=== PATIENT | male | born 1960 | race Caucasian/White ===

== ENCOUNTER 2021-11-26 07:39 | Outpatient (REF) | payer OTHER, SELFPAY ==
[2021-11-26 08:03] LABS: MANUAL DIFF FLAG NO
[2021-11-26 08:28] LABS: Basophils Percent Auto 0.5 % (0-2); Eosinophils Absolute Auto 0.1 X10*3/uL (0.0-0.4); Hematocrit 45.7 % (42.0-52.0); Imm Gran Abs Auto 0.02 X10*3/uL (0.00-0.03); Imm Gran Pct Auto 0.3 % (0.0-0.4); Lymphocytes Absolute Auto 1.4 X10*3/uL (1.2-4.9); Lymphocytes Percent Auto 23.5 % (20-40); Mean Corpuscular HGB Conc 32.8 g/dl (31.0-36.0); Mean Corpuscular Hemoglobin 29.5 pg (27.0-33.0); Mean Platelet Volume 10.4 fL (9.4-12.4); Monocytes Absolute Auto 0.5 X10*3/uL (0.1-1.2); Monocytes Percent Auto 8.5 % (2-11); Neutrophils Absolute Auto 3.8 x10*3/uL (2.0-8.3); Neutrophils Percent Auto 66.2 % (45-73); Platelet Count 255 X10*3/uL (160-400); Red Blood Count 5.08 X10*6/uL (4.60-5.80); Red Cell Distribution Width 12.7 % (11.0-16.0); White Blood Count 5.8 X10*3/uL (4.8-10.8)
[2021-11-26 08:47] LABS: Appearance Urine CLEAR; Color Urine YELLOW; Glucose Urine UA NEG (NEG); Leukocyte Esterase Urine NEG (NEG); Nitrite Urine NEG (NEG); Specific Gravity - Urine >= 1.030 (1.005-1.025); Urine Blood NEG (NEG); Urine Ketones NEG (NEG); Urine Protein NEG (NEG-TRACE)
[2021-11-26 09:31] LABS: Alanine Aminotransferase 10 U/L (0-40); Albumin Level 4.2 g/dL (3.5-5.0); Alkaline Phosphatase 45 U/L (39-117); Anion Gap 9 (12-20); Aspartate Amino Transferase 17 U/L (5-37); Bilirubin Total 1.3 mg/dL (0.0-1.0); Blood Urea Nitrogen 16 mg/dL (9-16); Calcium 9.4 mg/dL (8.4-10.2); Carbon Dioxide 29 mmol/L (22-29); Chloride 104 mmol/L (96-108); Cholesterol 204 mg/dL; Estimated Glomerular Filt Rate 58; Glucose Fasting 95 mg/dL (60-99); HDL Cholesterol 54 mg/dL; LDL Cholesterol Calculated 137 mg/dl; Potassium 4.4 mmol/L (3.3-5.1); Sodium 138 mmol/L (135-145); Total Protein 6.6 g/dL (6.5-8.0); Triglycerides 66 mg/dL
[2021-11-26 09:33] LABS: TSH reflex Free T4 1.26 uIU/mL (0.32-4.0); Vitamin D 25-OH Total 11.8 ng/mL (>30)
== END 2021-11-26 07:40 | disposition home or self-care (01) ==
LOC: HO.LAB 07:39
PROVIDERS: PCP Internal Medicine; Visit Provider Internal Medicine
DX: Z00.00 Encounter for general adult medical examination without abnormal findings (principal)
CPT/HCPCS: 36415; 80053; 80061; 81003; 82306; 84153; 84443; 85025

== ENCOUNTER 2023-06-23 07:48 | Outpatient (AMB) | payer MEDICARE, SELFPAY ==
--- NOTE | 2023-06-23 07:55 | AM.OFFVISNUR ---
Intake Intake Visit Reasons: possible strep Allergies iodine Allergy (Unknown, Verified 11/01/21 17:04) Rash Do you need a note to return to daycare/school/sports/work: No Results AMB Rapid Strep AMB Rapid Strep Negative Last Edit by ARINA Ojeda on 06/23/23 07:58 Coding Assessment & Plan Assessment & Plan Plan strep test negative
--- NOTE | 2023-06-23 08:05 | AM.OFFVISNUR ---
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 Information Interpreted: clinical only Homemaking Rehabilitation Consultant: Homemaking Rehabilitation Consultant offered & declined Accompanied by: Self / Same As Patient Allergies iodine Allergy (Unknown, Verified 06/23/23 08:05) Rash Do you need a note to return to daycare/school/sports/work: No Results AMB Rapid Strep AMB Rapid Strep Cancelled Last Edit by Brittani Navarro CMA on 06/23/23 08:07 AMB Rapid Strep previously reported as Negative Brittani Navarro 06/23/23 08:07 CANCELLED Note is not closing AMB Rapid Strep AMB Rapid Strep Negative Last Edit by Brittani Navarro CMA on 06/23/23 08:08 Coding Level of Care Code Established Pt Est Pt Level 1 (85685) Patient Type Established History Problem Focused Exam Problem Focused Medical Decision Making Straight Forward Diagnoses Sore throat J02.9 Time Spent (min) 5 Assessment & Plan Assessment & Plan (1) Sore throat: Code(s): J02.9 - Acute pharyngitis, unspecified Plan: Swab came back negative Plan Patient came in with sore throat, swab was done and came back negative. Orders: Orders AMB Rapid Strep Screen Today B97.89 - Other viral agents as the cause of diseases classified elsewhere, J02.8 - Acute pharyngitis due to other specified organisms
== END 2023-06-23 07:50 | disposition home or self-care (01) ==
LOC: HO.HMGH 07:48
PROVIDERS: PCP Internal Medicine; Visit Provider Internal Medicine
DX: J02.8 Acute pharyngitis due to other specified organisms (principal); B97.89 Other viral agents as the cause of diseases classified elsewhere; J02.9 Acute pharyngitis, unspecified
CPT/HCPCS: 87880

== ENCOUNTER 2023-09-21 10:19 | Outpatient (REF) | payer MEDICARE, SELFPAY ==
--- NOTE | ~2023-09-21 | XR_ITS ---
EXAMINATION: XR ANKLE, RIGHT CLINICAL INFORMATION: Ankles and joints of right foot Ski accident COMPARISON: None available. TECHNIQUE: AP, lateral, and mortise views of the right ankle. FINDINGS: There is mild soft tissue swelling over the lateral malleolus. There is a comminuted oblique fracture of the distal fibular shaft without significant displacement. Small ossific or calcific density posterior to the talus on the lateral view is of unknown chronicity. Small calcific density seen at the insertion of the Achilles tendon. Joint spaces are maintained. XR/XR ankle RT min 3V IMPRESSION: 1. Comminuted oblique fracture of the distal fibular shaft without significant displacement. 2. Small ossific or calcific density posterior to the talus on the lateral view is of unknown chronicity.
== END 2023-09-21 10:20 | disposition home or self-care (01) ==
LOC: HO.XRAY 10:19
PROVIDERS: PCP Internal Medicine; Visit Provider Internal Medicine
DX: M25.571 Pain in right ankle and joints of right foot (principal)
CPT/HCPCS: 73610

== ENCOUNTER 2023-09-25 10:11 | Outpatient (AMB) | payer MEDICARE, SELFPAY ==
--- NOTE | 2023-09-25 10:13 | A.OFFVIS_ITS ---
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 DOI 09/20/23. Patient reports that he his some ice and took a fall. He reports that he was placed in a boot right away. He is not having any numbness or tingling. He is having minimal pain. Allergies iodine Allergy (Unknown, Verified 06/23/23 08:05) Rash HPI INTERNATIONAL LOGISTICS COORDINATOR, R foot fx DOI 09/19/[address] Baker is a 63 year old M who presents for a right ankle fracture, S/P fall, DOI: 09/19/23. He was snowboarding and had a significant injury to his right ankle but the precise mechanism is unclear. He has been wearing a boot and has minimal pain. He states there has been mild swelling. [facility] Medical History (Updated 09/21/23 @ 10:52 by Mauricio Mejia MD) No pertinent past medical history Surgical History (Updated 11/01/21 @ 17:22 by Mauricio Mejia MD) History of colonoscopy (~02/28/13) S/P excision of lipoma (~03/05/16) History of tonsillectomy Family History Father Heart disease Father Heart disease Social History Housing: House Alcohol intake: never Patient Tobacco Use Status: Never used Tobacco Second Hand Smoke Exposure: No service: No Current occupational status: employed Cognitive needs: No Hearing needs: No Vision needs: Yes Review of Systems Const All systems reviewed & are unremarkable except as noted in HPI and below Physical Exam Const General: no acute distress, alert and awake HEENT Head: Yes normocephalic and Yes atraumatic Resp Effort & Inspection: normal respiratory effort and able to speak in complete sentences Cardio Jugular venous distension: no JVD Extrem Other: Right ankle with mild swelling over the distal fibula. there is TTP over the deltoid ligament medially. Psych Appearance: grossly normal Affect: normal affect Attitude: cooperative Results Reviewed Results Reviewed: I personally reviewed relevant radiographs. There is a minimallydisplaced Hay B distal fibula fracture nad a quaestion of posterior talar avulsion/chip fracture? Assessment & Plan Assessment & Plan (1) Closed right ankle fracture: Code(s): S82.891A - Other fracture of right lower leg, initial encounter for closed fracture Plan: Right ankle fracture with posterior calcaneal ossific body that may represent a talar avulsion and medial tenderness over the deltoid. MRI ordered to assess deltoid ligament. Boot . F/u in 2 weeks for radiographs. Will contact when MRI resulted. Plan Prepared for Nick Ann MD by Maxime Wright, ophthalmic medical assistant, on 09/25/23 at 10:17 AM, EST. Orders: Orders MR ankle RT wo con Today S82.891A - Other fracture of right lower leg, initial encounter for closed fracture Coding Level of Care Code New Pt Level 3 (40231) Diagnoses Closed right ankle fracture S82.891A
== END 2023-09-25 10:39 | disposition home or self-care (01) ==
PROVIDERS: PCP Internal Medicine; Visit Provider Orthopaedic Surgery
DX: S82.891A Other fracture of right lower leg, initial encounter for closed fracture (principal); M89.8X7 Other specified disorders of bone, ankle and foot
CPT/HCPCS: 99203

== ENCOUNTER → 2023-09-25 10:11 | Outpatient (BNVA) | payer MEDICARE, SELFPAY | PROVIDERS: PCP Internal Medicine; Visit Provider Orthopaedic Surgery | DX: S82.891A Other fracture of right lower leg, initial encounter for closed fracture (principal) | CPT/HCPCS: 99202 ==

== ENCOUNTER 2023-10-12 07:37 | Outpatient (REF) | payer MEDICARE, SELFPAY ==
--- NOTE | ~2023-10-12 | XR_ITS ---
EXAMINATION: XR ANKLE, RIGHT CLINICAL INFORMATION: Nonspecific ankle and joints of foot. COMPARISON: Radiographs of the right ankle of 09/21/2023 . TECHNIQUE: 3 views of the right ankle. FINDINGS: Decreased ankle joint effusion and soft tissue swelling. Redemonstration of a comminuted oblique fracture of the distal shaft of the fibula with minimal displacement. Fracture line is still visible, but less conspicuous, characteristic of some interval bridging callus formation. The previously identified small ossific or calcific density posterior to the talus on the lateral view is less conspicuous and is of undetermined age and etiology. XR/XR ankle RT min 3V IMPRESSION: Healing oblique fracture of the distal fibular shaft.
== END 2023-10-12 07:38 | disposition home or self-care (01) ==
LOC: HO.HOSX 07:37
PROVIDERS: Visit Provider Orthopaedic Surgery
DX: M25.571 Pain in right ankle and joints of right foot (principal); S82.891A Other fracture of right lower leg, initial encounter for closed fracture; X58.XXXA Exposure to other specified factors, initial encounter; Y93.9 Activity, unspecified; Y92.9 Unspecified place or not applicable; Y99.9 Unspecified external cause status
CPT/HCPCS: 73610; 99212

== ENCOUNTER 2023-10-12 08:15 | Outpatient (AMB) | payer MEDICARE, SELFPAY ==
--- NOTE | 2023-10-12 08:18 | MHC.OFFVIS ---
Intake Intake Visit Reasons: O/V R foot fx DOI 09/19/23 MRI rev Intake Note: Uriel is a 63 year old male who presents today as a new patient with complaints of right foot pain DOI 09/20/23. At his last visit he was instructed to wear a boot and an MRI was ordered. Today he presents for review of the MRI Allergies iodine Allergy (Unknown, Verified 06/23/23 08:05) Rash HPI O/V R foot fx DOI 09/19/23 MRI rev HPI Details Uriel is doing well. No complaints. No medial sided pain. MRI deferred. [facility] Medical History (Updated 09/21/23 @ 10:52 by Mauricio Mejia MD) No pertinent past medical history Surgical History (Updated 11/01/21 @ 17:22 by Mauricio Mejia MD) History of colonoscopy (~02/28/13) S/P excision of lipoma (~03/05/16) History of tonsillectomy Family History Father Heart disease Father Heart disease Social History Housing: House Alcohol intake: never Patient Tobacco Use Status: Never used Tobacco Second Hand Smoke Exposure: No service: No Current occupational status: employed Cognitive needs: No Hearing needs: No Vision needs: Yes Physical Exam Extrem Other: No STS Very mild TTP laterally only Results Reviewed Results Reviewed: I personally reviewed relevant radiographs. Unchanged appearance of Hay B lateral malleolus fracture Assessment & Plan Assessment & Plan (1) Closed right ankle fracture: Code(s): S82.891A - Other fracture of right lower leg, initial encounter for closed fracture Plan: RIght lateral malleolus fracture May progress to WBAt in boot F/u 4 weeks with xray Orders: Orders XR ankle RT min 3V Today M25.579 - Pain in unspecified ankle and joints of unspecified foot Coding Level of Care Code Est Pt Level 3 (12856) Diagnoses Closed right ankle fracture S82.891A
== END 2023-10-12 10:43 | disposition home or self-care (01) ==
PROVIDERS: PCP Internal Medicine; Visit Provider Orthopaedic Surgery
DX: S82.891A Other fracture of right lower leg, initial encounter for closed fracture (principal)
CPT/HCPCS: 99213

== ENCOUNTER 2023-11-05 09:27 | Outpatient (REF) | payer MEDICARE, SELFPAY ==
--- NOTE | ~2023-11-05 | XR_ITS ---
EXAMINATION: XR ANKLE, LEFT CLINICAL INFORMATION: Ankle pain COMPARISON: Ankle radiographs 10/12/2023 TECHNIQUE: AP, lateral, and mortise views of the left ankle. FINDINGS: Redemonstration of an obliquely oriented fracture of the distal fibular diaphysis possibly minimally increased in degree of displacement with minimal bridging bony callus formation. Joint spaces are maintained. Soft tissues are unremarkable. Similar small tibiotalar joint effusion. XR/XR ankle LT min 3V IMPRESSION: 1. Redemonstration of an obliquely oriented fracture of the distal fibular diaphysis possibly minimally increased in degree of displacement with minimal bridging bony callus formation. 2. Similar small tibiotalar joint effusion. 3. No new acute osseous abnormality.
== END 2023-11-05 09:28 | disposition home or self-care (01) ==
LOC: HO.HOSX 09:27
PROVIDERS: Visit Provider Orthopaedic Surgery
DX: M25.572 Pain in left ankle and joints of left foot (principal); S82.891A Other fracture of right lower leg, initial encounter for closed fracture
CPT/HCPCS: 73610; 99212

== ENCOUNTER 2023-11-05 09:50 | Outpatient (AMB) | payer MEDICARE, SELFPAY ==
--- NOTE | 2023-11-05 09:51 | MHC.OFFVIS ---
Intake Intake Visit Reasons: OV -Lateral Malleolus fx DOI 09/19/23 Intake Note: Uriel is a 63 year old male who presents today for a follow up of his right lateral malleous DOI 09/20/23. At his last visit he was to begin WBAT in boot. Allergies iodine Allergy (Unknown, Verified 06/23/23 08:05) Rash HPI OV -Lateral Malleolus fx DOI 09/19/23 HPI Details Uriel is a 63 year old male who presents today for a follow up of his right lateral malleous DOI 09/20/23. At his last visit he was to begin WBAT in boot. [facility] Medical History (Updated 09/21/23 @ 10:52 by Mauricio Mejia MD) No pertinent past medical history Surgical History (Updated 11/01/21 @ 17:22 by Mauricio Mejia MD) History of colonoscopy (~02/28/13) S/P excision of lipoma (~03/05/16) History of tonsillectomy Family History Father Heart disease Father Heart disease Social History Housing: House Alcohol intake: never Patient Tobacco Use Status: Never used Tobacco Second Hand Smoke Exposure: No service: No Current occupational status: employed Cognitive needs: No Hearing needs: No Vision needs: Yes Physical Exam Extrem Other: Flexing and extending the ankle comfortably There is no effusion There is no tenderness to palpation Results Reviewed Results Reviewed: I personally reviewed relevant radiographs. Healing Hay B lateral malleolus oblique nondisplaced fracture. Assessment & Plan Assessment & Plan (1) Closed right ankle fracture: Code(s): S82.891A - Other fracture of right lower leg, initial encounter for closed fracture Plan: I recommend he progress to weight-bearing as tolerated with light strengthening. Physical therapy was written. I would avoid strenuous cutting activity. Follow up in 6 weeks for repeat x-rays and exam. Orders: Orders XR ankle LT min 3V Today M25.579 - Pain in unspecified ankle and joints of unspecified foot PT Evaluation and Treatment Today S82.891A - Other fracture of right lower leg, initial encounter for closed fracture Coding Level of Care Code Est Pt Level 3 (30693) Diagnoses Closed right ankle fracture S82.891A
== END 2023-11-05 10:37 | disposition home or self-care (01) ==
LOC: HO.HOS 09:50
PROVIDERS: PCP Internal Medicine; Visit Provider Orthopaedic Surgery
DX: S82.891A Other fracture of right lower leg, initial encounter for closed fracture (principal)
CPT/HCPCS: 99213

== ENCOUNTER 2023-12-04 11:28 | Outpatient (AMB) | payer MEDICARE, SELFPAY ==
--- NOTE | 2023-12-04 11:29 | MHC.PC.OV ---
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 Docketing Specialist: Not Required per policy Accompanied by: Self / Same As Patient Allergies iodine Allergy (Unknown, Verified 12/06/23 17:50) Rash Medication List - Last Reconciled 12/06/23 by Mauricio Mejia MD amoxicillin-pot clavulanate 875-125 mg 1 tab PO BID 10 days Tobacco use date assessed: 12/04/23 Fall risk assessment: 1 Fall in past year Last assessed Fall Risk: 12/04/23 Dental Screening Dental Screen Date: 12/04/23 Did you have a dental visit in the last 12 months?: Yes Did you have a dental problem in the last 6 months where you did not have access to dental care?: No Was dental information given to patient?: Patient has dentist HPI Strep Throat HPI Details Patient comes in today complaining of increasing sore throat for the past 2 to 3 days He is concerned that he may have strep throat and does not want to risk transmitting it to his grandchildren this coming weekend States that his throat feels sore and raw He denies any fever or any recent nasal or sinus congestion but relates (+) some right ear discomfort and fullness Denies any chest pains, no SOB No nausea/vomiting, no abdominal pain No change in bowel habits noted PFSH Medical History No pertinent past medical history Surgical History History of colonoscopy (~02/28/13) S/P excision of lipoma (~03/05/16) History of tonsillectomy Family History Father Heart disease Father Heart disease Social History Housing: House Alcohol intake: never Patient Tobacco Use Status: Never used Tobacco e-Cigarette/Vaping Use: Never Used Second Hand Smoke Exposure: No service: No Current occupational status: employed Cognitive needs: No Hearing needs: No Vision needs: Yes Questionnaire PHQ-9 Over the last 2 weeks, how often have you been bothered by any of the following problems? 1. Little interest or pleasure in doing things: not at all 2. Feeling down, depressed, or hopeless: not at all 3. Trouble falling or staying asleep, or sleeping too much: not at all 4. Feeling tired or having little energy: not at all 5. Poor appetite or overeating: not at all 6. Feeling bad about yourself - or that you are a failure or have let yourself or your family down: not at all 7. Trouble concentrating on things, such as reading the newspaper or watching television: not at all 8. Moving or speaking so slowly that other people could have noticed. Or the opposite - being so fidgety or restless that you have been moving around a lot more than usual: not at all 9. Thoughts that you would be better off or of hurting yourself in some way: not at all Total score: 0 Depression Screening Interpretation: Negative Depression Screening Done: Yes 33506 - PHQ-9 Billing: Yes Source: Developed by Drs. Jose Whiteside, Ghazal Tee, Joshua Newell and colleagues, with an educational emma from [employer]. Thrive Questionnaire Date Thrive assessed: 12/04/23 I am a: Patient What is your living situation today?: I have a steady place to live Within the past 12 months, did the food you bought not last and you didn't have the money to get more?: Never true Within the past 12 months, did you worry whether your food would run out before you got money to buy more?: Never true Do you have trouble paying for medicines?: No Do you have trouble getting transportation to medical appointments?: No Do you have trouble paying your heating and electricity bill?: No Do you have trouble taking care of your child, family member or friend?: No Do you have trouble with day-to-day activities such as bathing, preparing meals, shopping, managing finances, etc.?: No Are you currently unemployed and looking for a job?: No Are you interested in more education?: No Currently or been in a relationship where the following occur: no concerns reported THRIVE Score: 0 AUDIT C Alcohol Use Questionnaire (AUDIT-C) 1. How often do you have a drink containing alcohol?: Never 3. How often do you have six or more drinks on one occasion?: Never Total Score: 0 Score Reviewed/Action Taken: Yes KAVITA-7 AMB Questionnaire KAVITA-7 Date KAVITA - 7 assessed: 12/04/23 Feeling nervous, anxious, or on edge: 0 = Not at all Not being able to stop or control worryin = Not at all Worrying too much about different things: 0 = Not at all Trouble relaxin = Not at all Being so restless that it is hard to sit still: 0 = Not at all Becoming easily annoyed or irritable: 0 = Not at all Feeling afraid as if something awful might happen: 0 = Not at all Total KAVITA-7 score (0-4 normal; 5-9 mild; 10-14 moderate; 15-21 severe): 0 Source: Developed by Drs. Jose Whietside, Ghazal Tee, Joshua Newell and colleagues, with an educational emma from [employer]. Review of Systems Const Denies chills, Denies fatigue, Denies fever(s) and Denies headache(s) ENT Denies dysphagia, Denies dizziness, Denies otalgia (but (+) right ear pressure/fullness lately), Denies headache(s), Denies neck pain and Reports sore throat (increased over the past couple of days) Card Denies chest pain, Denies palpitations and Denies dyspnea Resp Denies cough and Denies dyspnea GI Denies abdominal pain, Denies change in bowel habits, Denies dysphagia, Denies nausea and Denies vomiting Denies dysuria and Denies urinary frequency Musc Denies neck pain Skin/Breast Denies rash Neuro Denies dizziness and Denies headache(s) Endo Denies fatigue and Denies palpitations Physical exam (Primary Care) Vital Signs: Last Vital Signs Pulse 71 12/04/23 11:31 BP 100/60 12/04/23 11:31 Pulse Ox 100 12/04/23 11:31 Oxygen Delivery Method Room Air 12/04/23 11:31 BMI result Body Mass Index 24.1 Tobacco/Smoking Status: Tobacco use Status Tobacco use date assessed 12/04/23 12/04/23 11:37 Patient Tobacco Use Status Never used Tobacco 12/04/23 11:37 e-Cigarette/Vaping Use Never Used 12/04/23 11:37 PHQ-9: PHQ-9 Score PHQ-9: Total score 0 12/04/23 11:45 Depression Screening Interpretation: Negative Thrive Assessment: Date of Thrive Assessment Date Thrive assessed 12/04/23 12/04/23 11:37 Currently or been in a relationship where the following occur: no concerns reported Const General: no acute distress and alert HENMT Ears: TM's normal bilaterally, EAC's normal (on the left) and Abnormal EAC present erythema (mild) on the right; no otic discharge Throat: Yes posterior oropharynx abnormal (increased erythema) and Yes tonsils absent (s/p tonsillectomy) Neck Neck: Yes supple and Yes lymphadenopathy (over posterior cervical areas bilaterally) Resp Auscultation: clear to auscultation bilaterally, no rales and no wheezes Cardio Rate: regular rate Rhythm: regular rhythm Heart sounds: no murmurs GI Palpation (GI): Soft to palpation and nontender Skin Rashes: no rashes Extrem General: Yes no clubbing, cyanosis or edema Results AMB Rapid Strep AMB Rapid Strep Negative Last Edit by ARINA Muñiz on 12/04/23 11:42 Results Reviewed Results Reviewed: Laboratory Last Values Strep Scn [facility] Negative 12/04/23 11:29 Assessment and Plan Assessment & Plan (1) Acute pharyngitis: Code(s): J02.9 - Acute pharyngitis, unspecified Qualifiers: Pharyngitis/tonsillitis etiology: unspecified etiology Qualified Code(s): J02.9 - Acute pharyngitis, unspecified Plan: In-office strep test done today is negative but patient's symptoms are consistent with acute pharyngitis and strep still cannot be definitively ruled out Will go ahead and start him empirically on Augmentin 875 mg BID x 10 days Advised that he can take OTC analgesics PRN for symptomatic relief Plan Follow up PRN Orders: Orders AMB Rapid Strep Screen 12/04/23 Z13.9 - Encounter for screening, unspecified Medications: New amoxicillin-pot clavulanate 875-125 mg 1 tab PO BID 20 tabs 0RF 10 days Coding Level of Care Code Est Pt Level 3 (32011) Diagnoses Acute pharyngitis, unspecified etiology J02.9 Pharyngitis/tonsillitis etiology: unspecified etiology
[2023-12-04 11:31] VITALS: BP 100/60; PULSE 71; O2SAT 100; BMI 24.1
== END 2023-12-04 11:48 | disposition home or self-care (01) ==
LOC: HO.HMGH 11:28
PROVIDERS: PCP Internal Medicine; Visit Provider Internal Medicine
DX: J02.9 Acute pharyngitis, unspecified (principal)
CPT/HCPCS: 87880; 99213

== ENCOUNTER 2023-12-18 12:00 | Outpatient (AMB) | payer MEDICARE, SELFPAY ==
[2023-12-18 12:02] VITALS: BMI 24.0
--- NOTE | 2023-12-18 12:02 | A.OFFVIS_ITS ---
Vital Signs 12/18/23 12:02 Height 5 ft 8 in Weight 158 lb BMI 24.0 Intake Visit Reasons: OV -Lateral Malleolus fx DOI 09/19/23-follow up Intake Note: Uriel is a 63 year old male who presents today for a follow up of his right lateral malleous DOI 09/20/23 Allergies iodine Allergy (Unknown, Verified 12/06/23 17:50) Rash HPI HPI OV -Lateral Malleolus fx DOI 09/19/23-follow up: Details: 3 mo post op has not returned to regular activity but he is walking comfortably. Discomfort walking uneven ground. This is mostly lateral. [facility] Medical History No pertinent past medical history Surgical History History of colonoscopy (~02/28/13) S/P excision of lipoma (~03/05/16) History of tonsillectomy Family History Father Heart disease Father Heart disease Social History Housing: House Alcohol intake: never Patient Tobacco Use Status: Never used Tobacco e-Cigarette/Vaping Use: Never Used Second Hand Smoke Exposure: No service: No Current occupational status: employed Cognitive needs: No Hearing needs: No Vision needs: Yes Physical Exam Vital Signs: BMI result Body Mass Index 24.0 Extrem Other: Minimal swelling No bony tenderness To palpation full range of motion right ankle Assessment & Plan Assessment & Plan (1) Closed right ankle fracture: Code(s): S82.891A - Other fracture of right lower leg, initial encounter for closed fracture Category: Medical Plan Activity as tolerated. May follow up as needed. Coding Level of Care Code Est Pt Level 3 (32431) Diagnoses Closed right ankle fracture S82.891A
== END 2023-12-18 12:03 | disposition home or self-care (01) ==
PROVIDERS: PCP Internal Medicine; Visit Provider Orthopaedic Surgery
DX: S82.891A Other fracture of right lower leg, initial encounter for closed fracture (principal)
CPT/HCPCS: 99212

== ENCOUNTER → 2023-12-18 12:00 | Outpatient (BNVA) | payer MEDICARE, SELFPAY | PROVIDERS: PCP Internal Medicine; Visit Provider Orthopaedic Surgery | DX: S82.891A Other fracture of right lower leg, initial encounter for closed fracture (principal); X58.XXXA Exposure to other specified factors, initial encounter; Y93.9 Activity, unspecified; Y92.9 Unspecified place or not applicable; Y99.9 Unspecified external cause status | CPT/HCPCS: 99212 ==

== ENCOUNTER 2023-12-25 11:41 | Day surgery (SDC) | payer MEDICARE, SELFPAY ==
[2023-12-23 15:01] VITALS: BMI 23.6
--- NOTE | 2023-12-24 09:41 | P.CONAN_ITS ---
Documented by User: Tiffani Alexander NP 12/24/23 09:41 HPI - Anesthesia Eval Consult details Narrative: 63yo M for Colonoscopy [facility] Active Problems Active Problems: All Active Problems Acute pharyngitis (Acute) Closed right ankle fracture (Acute) Right ankle pain (Acute) Right elbow pain (Acute) Annual physical exam (Acute) Past Medical History Medical History Closed fracture of right fibula Nephrolithiasis Family History Family History Father Heart disease Father Heart disease Surgical History Surgical History (Updated 12/25/23 @ 11:47 by Marilia Prado RN) History of colonoscopy (~02/28/13) S/P excision of lipoma (~03/05/16) History of tonsillectomy Social History Social History Housing: House Alcohol intake: never Patient Tobacco Use Status: Never used Tobacco e-Cigarette/Vaping Use: Never Used Second Hand Smoke Exposure: No Use of substances other than those prescribed or required for medical reasons: No Are you DNR?: No Advance Directives: No Advance Directives Information Provided: Yes service: No Current occupational status: employed Cognitive needs: No Hearing needs: No Vision needs: Yes Meds Allergies Allergy/AdvReac Type Severity Reaction Status Date / Time iodine Allergy Intermediate Rash Verified 12/25/23 11:47 Home Medications ?Medication ?Instructions ?Recorded ?Confirmed ?Last Taken ?Type Vitamin D3 1 cap PO DAILY 12/23/23 12/25/23 Unknown History Exam Height,Weight and Vital Signs: Height 5 ft 8 in Weight 70.307 kg Assessment and Plan Assessment Anesthesia Assessment: Chart Reviewed Documented by User: Brian Aranda MD 12/25/23 12:21 PMFSH Past Medical History Medical History Closed fracture of right fibula Nephrolithiasis Family History Family History Father Heart disease Father Heart disease Family history of problems with anesthesia: No Surgical History Surgical History (Updated 12/25/23 @ 11:47 by Marilia Prado RN) History of colonoscopy (~02/28/13) S/P excision of lipoma (~03/05/16) History of tonsillectomy History of Problems with Anesthesia: No Social History Social History Housing: House Alcohol intake: never Patient Tobacco Use Status: Never used Tobacco e-Cigarette/Vaping Use: Never Used Second Hand Smoke Exposure: No Use of substances other than those prescribed or required for medical reasons: No Are you DNR?: No Advance Directives: No Advance Directives Information Provided: Yes service: No Current occupational status: employed Cognitive needs: No Hearing needs: No Vision needs: Yes Meds Allergies Allergy/AdvReac Type Severity Reaction Status Date / Time iodine Allergy Intermediate Rash Verified 12/25/23 11:47 Home Medications ?Medication ?Instructions ?Recorded ?Confirmed ?Last Taken ?Type Vitamin D3 1 cap PO DAILY 12/23/23 12/25/23 Unknown History Exam Airway Mallampati Class: I TM Dist: >3cm Neck ROM: Full Loose/Missing/Broken Teeth: No Heart: rrr Lungs: cta Assessment and Plan Assessment Anesthesia Assessment: Anesthesia Plan Discussed Final Anesthetic Review Family History of Problems with Anesthesia: No History of Problems with Anesthesia: No NPO: Yes ASA Class: I Final Preanesthetic Review: No Changes in Pt Med Stat, Meds/Allgs Chart Reviewed, Consent Obtained/Reviewed and Anes Risks/Benef Reviewed Patient Risk: Low Procedure Risk: Intermediate Anesthetic Plan Anesthetic Plan: MAC: Disposition: Standard PACU
[2023-12-25 12:08] VITALS: BP 108/70; PULSE 54; RESP 15; TEMP 36.8; O2SAT 99; BMI 23.6
[2023-12-25] MEDS: Lactated Ringers 1,000 ML 100 ML IVCONT (12:11)
--- NOTE | 2023-12-25 12:32 | MHC.SHP ---
Pre-Procedural Eval Section A - 24 Hr Update-Section A only Date of Service: 12/25/23 Section B - Complete if H&P > 30 days Chief Complaint: screening Details of Present Illness: see H&P no changes Relevant Family History (Specify if Yes): No Relevant Social History: None Present Medications: see Short Stay Collaborative assessment Medical History: No relevant PMH History of Previous Operations: No relevant previous surgery Allergies: Allergies Allergy/AdvReac Type Severity Reaction Status Date / Time iodine Allergy Intermediate Rash Verified 12/25/23 11:47 Review of Systems Sugical H&P ROS: Negative: Constitution, Cardiovascular, Respiratory, Neurological, Psychiatric, Hem-Onc, Allergic/Immunologic, Gastrointestinal, Genitourinary, Musculoskeletal, Integumentary, Endocrine and Eyes/Ears/Nose/Throat Exam Surgical H&P Exam: Normal: HEENT, Normal: Heart, Normal: Lungs, Normal: Extremities, Normal: Abdomen, Normal: Skin and Normal: Neurological Plan Diagnosis/Plan: Unchanged I have reviewed the history and physical and performed a pertinent physical examination on my patient. No changes have occurred unless specified. Time Spent With Patient Time: Total time managing care of this patient today ____ minutes.
[2023-12-25 13:25] VITALS: BP 95/50; PULSE 59; RESP 16; TEMP 36.6; O2SAT 99
[2023-12-25 13:40] VITALS: BP 109/63; PULSE 60; RESP 16; O2SAT 100
[2023-12-25 13:51] VITALS: BP 109/60; PULSE 60; RESP 18; TEMP 36.6; O2SAT 99
--- NOTE | 2023-12-25 14:33 | OP_ITS ---
DATE OF SERVICE: 12/25/2023 SURGEON: Louie Ang MD INDICATIONS: Colon cancer screening. PREOPERATIVE DIAGNOSIS: POSTOPERATIVE DIAGNOSIS: PROCEDURE PERFORMED: Colonoscopy to the terminal ileum with snare polypectomy and biopsy. ESTIMATED BLOOD LOSS: COMPLICATIONS: ANESTHESIA: Monitored anesthesia care. ASSISTANTS: SPECIMENS: DESCRIPTION OF PROCEDURE: A history and physical was performed. The risks and benefits of the procedure were explained to the patient. Informed consent was obtained. The patient was placed in the left lateral decubitus position. A digital rectal exam was performed and was found to be normal. The Olympus pediatric video colonoscope was introduced into the rectum and advanced to the cecum. The cecum was identified by transillumination, palpation, and identification of ileocecal valve. Examination was performed. The scope was removed. He tolerated the procedure well and was returned to the recovery area in stable condition. FINDINGS: The terminal ileum was normal. Visualized colonic mucosa was normal without evidence of colitis. There were a total of 5 polyps, which were removed using a combination of biopsy forceps and cold snare. The largest measured approximately 6 mm. Polyps were located in the cecum x2 at the hepatic flexure and in the rectum x2. Internal hemorrhoids were noted with retroflexed examination. A few diverticula were seen in the sigmoid. IMPRESSION: Colon polyps. RECOMMENDATION: Follow up the biopsy results. MD KYRA Holbrook/HARLEY / [id number]
== END 2023-12-25 13:15 | disposition home or self-care (01) ==
PROVIDERS: PCP Internal Medicine; Visit Provider Internal Medicine Gastroenterology
PROC: 0DJD8ZZ Inspection of Lower Intestinal Tract, Via Natural or Artificial Opening Endoscopic (ICD-10-PCS; CPT 45378; principal; 2023-12-25 13:20)
DX: Z12.11 Encounter for screening for malignant neoplasm of colon (principal); D12.0 Benign neoplasm of cecum; K62.1 Rectal polyp; K57.30 Diverticulosis of large intestine without perforation or abscess without bleeding; K64.8 Other hemorrhoids
CPT/HCPCS: 45385; 45380; 88305; J2704